=== PATIENT | male | born 1960 | race Caucasian/White ===

== ENCOUNTER 2021-07-15 15:17 | Inpatient (IN) | payer SELFPAY ==
[2021-07-15 16:05] LABS: Absolute Lymphocytes (CBC) 1.6 K/uL (0.7-4.9); Hematocrit 36.1 % (39.6-49.0); Lymphocytes % 13.2 % (15.3-44.8); MPV 9.8 fL (7.6-11.3)
[2021-07-15 16:08] LABS: Protime INR 0.96
[2021-07-15 16:19] LABS: C-Reactive Protein 44.5 mg/L (<3.00); Potassium 3.6 mmol/L (3.5-5.1)
[2021-07-15] MEDS ORDERED: VANCOMYCIN 1 GM/VIAL ONE (16:27)
[2021-07-15] MEDS ORDERED: NA CHLORIDE 0.9% 250 ML ONE (16:27)
[2021-07-15] MEDS ORDERED: NA CHLORIDE 0.9% 100 ML IV ONE (16:27)
[2021-07-15] MEDS ORDERED: PIPERACIL/TAZO 3.375 GM VIAL IV ONE (16:28)
--- NOTE | 2021-07-15 16:56 | ER ---
Nurse's Notes [facility] Name: Dat Saavedra Age: 61 yrs Sex: Male : 1960 Arrival Date: 07/15/2021 Time: 15:19 Bed 5 Private MD: Diagnosis: Cellulitis of right toe;Gangrene, not elsewhere classified;Osteomyelitis, unspecified Presentation: 07/15 15:32 Chief complaint: Patient states: Believes that second toe of R foot is infected, ph states, " I think it started as a blister and went from there." Hx of IDDM, denies fever or chills. Coronavirus screen: Vaccine status: Patient reports receiving the 2nd dose of the covid vaccine. Ebola Screen: No symptoms or risks identified at this time. Initial Sepsis Screen: Does the patient meet any 2 criteria? No. Patient's initial sepsis screen is negative. Does the patient have a suspected source of infection? Yes: Skin breakdown/wound. Risk Assessment: Do you want to hurt yourself or someone else? Patient reports no desire to harm self or others. Onset of symptoms was July 15, 2021. 15:32 Method Of Arrival: Ambulatory 15:32 Acuity: RAZIA 3 ph Historical: - Allergies: 15:34 No Known Allergies; ph - PMHx: 15:34 Diabetes mellitus; Kidney disease; Hypertensive disorder; ph - Immunization history:: Adult Immunizations unknown. - Social history:: Smoking status: Patient reports the use of cigarette tobacco products, smokes one pack cigarettes per day. - Family history:: not pertinent. - Hospitalizations: : No recent hospitalization is reported. Screenin:45 Abuse screen: Denies threats or abuse. Denies injuries from another. Nutritional ww screening: No deficits noted. Tuberculosis screening: No symptoms or risk factors identified. Fall Risk None identified. Assessment: 15:45 General: Appears in no apparent distress. comfortable, Behavior is calm, cooperative. ww Pain: Complains of pain in plantar aspect of right second toe, right second toe and Right second toenail. Neuro: Level of Consciousness is awake, alert, obeys commands, Oriented to person, place, time, situation, Moves all extremities. Speech is normal. Cardiovascular: Patient's skin is warm and dry. Chest pain is denied. Respiratory: Airway is patent Respiratory effort is even, unlabored, Respiratory pattern is regular, symmetrical. GI: No signs and/or symptoms were reported involving the gastrointestinal system. : No signs and/or symptoms were reported regarding the genitourinary system. Derm: Wound noted plantar aspect of right second toe, right second toe and Right second toenail Wound is swollen 2nd digit, weeping, with foul odor. 16:35 Reassessment: Patient appears in no apparent distress at this time. No changes from previously documented assessment. Patient and/or family updated on plan of care and expected duration. Pain level reassessed. Patient is alert, oriented x 3, equal unlabored respirations, skin warm/dry/pink. 18:37 Reassessment: Patient appears in no apparent distress at this time. No changes from previously documented assessment. Patient and/or family updated on plan of care and expected duration. Pain level reassessed. Patient is alert, oriented x 3, equal unlabored respirations, skin warm/dry/pink. Vital Signs: 15:32 BP 123 / 73; Pulse 69; Resp 18; Temp 98.9; Pulse Ox 98% on R/A; Weight 95.25 kg; Height ph 6 ft. 1 in. (185.42 cm); 17:45 Pulse 67; Resp 18; Temp 97.8; Pulse Ox 98% on R/A; ww 18:38 BP 104 / 56; Pulse 61; Resp 18; Pulse Ox 94% ; ww 15:32 Body Mass Index 27.71 (95.25 kg, 185.42 cm) ph ED Course: 15:19 Patient arrived in ED. am2 15:34 Triage completed. ph 15:35 Arm band placed on. ph 15:38 Alverto Mcgill MD is Attending Physician. rn 15:45 First set of blood cultures drawn by ED staff. vg1 15:45 Inserted saline lock: 20 gauge in right antecubital area, using aseptic technique. ww Blood collected. 15:55 Caterina Stroud, RN is Primary Nurse. ww 16:00 Second set of blood cultures drawn by or. vg1 16:14 SARS-COV-2 RT PCR (Document "Date of Onset" if Symptomatic) Sent. dh3 16:14 Wound Culture Sent. dh3 16:26 Patient has correct armband on for positive identification. Bed in low position. Call mh5 light in reach. Side rails up X 1. Warm blanket given. monitor car operator on. Pulse ox on. NIBP on. 16:27 EKG done, by ED staff, reviewed by Alverto Mcgill MD. 5 16:33 XRAY Foot RIGHT 3 View In Process Unspecified. EDMS 16:55 Eliot Gilliland is Hospitalizing Provider. rn 17:43 Lower Extremity Artery Uni Ltd US In Process Unspecified. EDMS 19:30 Attempted to call report. Nurse is still taking report for the day shift. Per protocol st1 I will call back in 10 minutes. 19:47 No provider procedures requiring assistance completed. Patient admitted, IV remains in st1 place. Administered Medications: 16:29 Drug: Zosyn (piperacillin-tazobactam) 3.375 grams Route: IVPB; Infused Over: 60 mins; ww Site: right antecubital; 17:41 Follow up: IV Status: Completed infusion; IV Intake: 100ml vg1 17:42 Drug: vancoMYCIN 1 grams Route: IVPB; Infused Over: 2 hrs; Site: right antecubital; vg1 Intake: 17:41 IV: 100ml; Total: 100ml. vg1 Outcome: 16:55 Decision to Hospitalize by Provider. rn 19:47 Admitted to Med/surg accompanied by tech, room 228, with chart, Report called to st1 SESAR Bynum 19:47 Condition: stable 19:47 Instructed on the need for admit, Demonstrated understanding of instructions. 19:58 Patient left the ED. [facility] Signatures: Dispatcher [employer] EDMS Alverto Mcgill MD MD rn Hall, Patricia, RN RN ph Martinez, Maria [facility] Claudia Pandey Leanne Silverio [facility] Patti Holguin RN RN [facility] Jaylin Hendricks RN RN 5 Caterina Stroud RN RN ww Lisa Vasquez RN RN [facility] Corrections: (The following items were deleted from the chart) 18:41 18:38 Pulse 61bpm; Resp 18bpm; Pulse Ox 94%; ww ww
--- NOTE | 2021-07-15 16:56 | EDPHYS ---
Physician Documentation [facility] Name: Dat Saavedra Age: 61 yrs Sex: Male : 1960 Arrival Date: 07/15/2021 Time: 15:19 Bed 5 Private MD: ED Physician Alverto Mcgill HPI: 07/15 16:03 This 61 yrs old Male presents to ER via Ambulatory with complaints of Foot Pain - rn infection. 16:03 The patient presents with cellulitis of the right foot. Description: draining, rn erythematous, hot, swollen. Onset: The symptoms/episode began/occurred 2 week(s) ago. Possible cause(s): unknown. Associated signs and symptoms: Pertinent positives: drainage, erythema, swelling. Modifying factors: the symptoms are alleviated by nothing, the symptoms are aggravated by squeezing the lesion and expressing the contents, touching. Severity of symptoms: At their worst the symptoms were moderate, in the emergency department the symptoms are unchanged. The patient has not experienced similar symptoms in the past. The patient has not recently seen a physician. Pt reports noticed blister on right 2nd toe 2 weeks ago, no direct trauma noted, progressed to swelling, drainage, redness, and foul smell this past week. No fever. No chills. . Historical: - Allergies: 15:34 No Known Allergies; ph - PMHx: 15:34 Diabetes mellitus; Kidney disease; Hypertensive disorder; ph - Immunization history:: Adult Immunizations unknown. - Social history:: Smoking status: Patient reports the use of cigarette tobacco products, smokes one pack cigarettes per day. - Family history:: not pertinent. - Hospitalizations: : No recent hospitalization is reported. ROS: 16:03 Constitutional: Negative for fever, chills, and weight loss, Eyes: Negative for injury, rn pain, redness, and discharge, Neck: Negative for injury, pain, and swelling, Cardiovascular: Negative for chest pain, palpitations, and edema, Respiratory: Negative for shortness of breath, cough, wheezing, and pleuritic chest pain, Abdomen/GI: Negative for abdominal pain, nausea, vomiting, diarrhea, and constipation, Back: Negative for injury and pain, MS/Extremity: + pain and swelling to right 2nd toe with drainage Skin: + redness to right foot and 2nd toe with drainage Neuro: Negative for headache, weakness, numbness, tingling, and seizure. Exam: 16:03 Constitutional: This is a well developed, well nourished patient who is awake, alert, rn and in no acute distress. Head/Face: Normocephalic, atraumatic. Cardiovascular: Regular rate and rhythm. No pulse deficits. Respiratory: No increased work of breathing, no retractions or nasal flaring. Abdomen/GI: soft, non-tender Skin: Warm, + erythema and drainage with foul smell of right 2nd toe circumferentially with some extension to dorsum of right foot, no streaking. MS/ Extremity: Diminished pulses but present and equal. Neuro: Awake and alert, GCS 15 Vital Signs: 15:32 BP 123 / 73; Pulse 69; Resp 18; Temp 98.9; Pulse Ox 98% on R/A; Weight 95.25 kg; Height ph 6 ft. 1 in. (185.42 cm); 17:45 Pulse 67; Resp 18; Temp 97.8; Pulse Ox 98% on R/A; ww 18:38 BP 104 / 56; Pulse 61; Resp 18; Pulse Ox 94% ; ww 15:32 Body Mass Index 27.71 (95.25 kg, 185.42 cm) ph MDM: 15:38 Patient medically screened. rn 16:54 Differential diagnosis: cellulitis, gangrene, cellulitis. Data reviewed: vital signs, rn nurses notes, lab test result(s), radiologic studies, and as a result, I will admit patient. Counseling: I had a detailed discussion with the patient and/or guardian regarding: the historical points, exam findings, and any diagnostic results supporting the discharge/admit diagnosis, lab results, the need for further work-up and treatment in the hospital. ED course: Admitted to Dr. Gilliland for cellulitis/wet gangrene/diabetic wound infection.. 07/15 15:52 Order name: Blood Culture Adult (2) rn 07/15 15:52 Order name: CBC with Diff; Complete Time: 16:52 rn 07/15 15:52 Order name: Lactate; Complete Time: 16:52 rn 07/15 15:52 Order name: Protime (+inr); Complete Time: 16:52 rn 07/15 15:52 Order name: Ptt, Activated; Complete Time: 16:52 rn 07/15 15:54 Order name: BMP; Complete Time: 16:52 rn 07/15 15:52 Order name: XRAY Foot RIGHT 3 View; Complete Time: 18:17 rn 07/15 15:54 Order name: Wound Culture rn 07/15 15:54 Order name: Sed Rate; Complete Time: 16:52 rn 07/15 15:54 Order name: CRP; Complete Time: 16:52 rn 07/15 16:02 Order name: SARS-COV-2 RT PCR (Document "Date of Onset" if Symptomatic); Complete Time: rn 18:07/15 16:08 Order name: Lower Extremity Artery [employer] US; Complete Time: 18:17 rn 07/15 15:52 Order name: Accucheck; Complete Time: 16:22 rn 07/15 15:52 Order name: Cardiac monitoring; Complete Time: 16:02 rn 07/15 15:52 Order name: EKG - Nurse/Tech; Complete Time: 16:22 rn 07/15 15:52 Order name: IV Saline Lock - Large Bore; Complete Time: 16:02 rn 07/15 15:52 Order name: Labs collected and sent; Complete Time: 16:03 rn 07/15 15:52 Order name: O2 Per Protocol; Complete Time: 16:03 rn 07/15 15:52 Order name: O2 Sat Monitoring; Complete Time: 16:03 rn Administered Medications: 16:29 Drug: Zosyn (piperacillin-tazobactam) 3.375 grams Route: IVPB; Infused Over: 60 mins; ww Site: right antecubital; 17:41 Follow up: IV Status: Completed infusion; IV Intake: 100ml vg1 17:42 Drug: vancoMYCIN 1 grams Route: IVPB; Infused Over: 2 hrs; Site: right antecubital; vg1 Disposition Summary: 07/15/21 16:55 Hospitalization Ordered Hospitalization Status: Inpatient Admission rn Provider: Eliot Gilliland rn Location: Telemetry/MedSurg (Inpatient) rn Condition: Stable rn Problem: new rn Symptoms: have improved rn Bed/Room Type: Standard rn Room Assignment: 228(07/15/21 18:40) eb Diagnosis - Cellulitis of right toe rn - Gangrene, not elsewhere classified rn - Osteomyelitis, unspecified rn Forms: - Medication Reconciliation Form rn - SBAR form rn Signatures: Dispatcher [employer] Alverto Munoz MD MD rn Seaman, Jennifer, RN RN Kimberley Quiles Victoria RN RN vg1 Caterina Stroud RN RN ww Corrections: (The following items were deleted from the chart) 18:40 16:55 rosita aguilar
--- NOTE | 2021-07-15 17:39 | P.HP ---
Certification for Inpatient Patient admitted to: Inpatient With expected LOS: >2 Midnights Practitioner: I am a practitioner with admitting privileges, knowledge of patient current condition, hospital course, and medical plan of care. Services: Services provided to patient in accordance with Admission requirements found in Title 42 Section 412.3 of the Code of Federal Regulations Patient History Date of Service: 07/15/21 Reason for admission: Right foot ulcer History of Present Illness: 61-year-old gentleman with a history of diabetes mellitus on insulin therapy, history of gout with gouty tophi, congestive heart failure, chronic kidney disease stage IV, history of nephrectomy secondary to renal cancer and hypertension presented to the emergency department with a complaint of rapidly progressive worsening ulcer on the right second toe of 1 week duration. Patient stated he has a wound on the left second toe which rapidly became progressive with increasing swelling and redness. He states that the wound also became malodorous. He denies any history of peripheral vascular disease. He reports prior cardiac catheterization which was normal but has a history of congestive heart failure. No gas identified on the foot x-ray in the ED. he has mild leukocytosis but does not meet criteria for sepsis. No recent antibiotics. Patient is admitted for further management. - Past Medical/Surgical History -: DM type II -: Chronic kidney disease stage IV -: History of renal cell cancer -: Hypertension -: Gout -: Tophi -: Nephrectomy -: Cardiac catheterization -: Appendectomy - Family History Mother -: Diabetes, Cancer - Social History Smoking Status: Current every day smoker Alcohol use: No CD- Drugs: No Place of Residence: Home Review of Systems Other: Patient denied any fever or chills, no nausea or vomiting, no abdominal pain. Except as documented, all other systems reviewed and negative. Physical Examination - Physical Exam General: Alert, In no apparent distress, Oriented x3 HEENT: PERRLA, Mucous membr. moist/pink, Sclerae nonicteric Neck: Supple, JVD not distended Respiratory: Clear to auscultation bilaterally, Normal air movement Cardiovascular: Regular rate/rhythm, Normal S1 S2, No murmurs, Edema (Bilateral legs worse on the right) Gastrointestinal: Normal bowel sounds, Soft and benign, Non-distended, No tenderness Musculoskeletal: Swelling (Right second toe) Integumentary: Erythema, Cyanosis, Other (Multiple small ulcers on the right second toe) Neurological: Normal strength at 5/5 x4 extr, Cranial nerves 3-12 intact Lymphatics: No axilla or inguinal lymphadenopathy - Studies Laboratory Data (last 24 hrs) 07/15/21 15:45: Sodium 133 L, Potassium 3.6, BUN 86 H, Creatinine 3.58 H, Glucose 119 H 07/15/21 15:45: PT 10.5, INR 0.96, APTT 44.2 H 07/15/21 15:45: WBC 11.8 H, Hgb 11.9 L, Hct 36.1 L, Plt Count 267 Assessment and Plan - Problems (Diagnosis) (1) Type 2 diabetes mellitus with foot ulcer and gangrene Current Visit: Yes Status: Acute (2) Hypertension Current Visit: Yes Status: Acute (3) Chronic kidney disease, stage IV (severe) Current Visit: Yes Status: Acute (4) Chronic diastolic heart failure Current Visit: Yes Status: Acute - Plan Admit the patient to the medical floor. Broad-spectrum antibiotic coverage with IV cefepime and vancomycin. Pharmacy consult to renally dose antibiotics. Pain management as needed. Obtain arterial Doppler to assess for peripheral vascular disease. Consult to general surgery. Local wound care. Obtain blood cultures. Deep tissue wound culture if patient will undergo debridement. Continue allopurinol for chronic gout. Insulin sliding scale and Lantus insulin for glucose management. Continue home antihypertensives. Monitor renal function. - Advance Directives Does patient have a Living Will: No Does patient have a Durable POA for Healthcare: No
[2021-07-15] MEDS: carvediloL 25 MG TAB PO SCH (18:00)
--- NOTE | 2021-07-15 18:11 | RAD REPORT ---
EXAM DESCRIPTION: US - Lower Extremity Artery [employer] Ltd - 07/15/2021 5:41 pm CLINICAL HISTORY: weak DP pulse, gangrene COMPARISON: No comparisons TECHNIQUE: Doppler evaluation of the right lower extremity arterial tree performed. Waveforms and ve locity values were obtained along with visual inspection. FINDINGS: Monophasic waveform pattern was seen throughout the right lower extremity likely indicatin g significant flow restricting atherosclerotic change in the iliac vasculature.Atherosclerotic change s are present along the brennan of the arterial tree. Blood flow is demonstrated in the common femoral, superficial femoral, popliteal, posterior tibial and dorsalis pedis arteries. No occlusion or focal area of flow restricting vascular lesions seen. Velocities are dampened along the entire course of th e right lower extremity. IMPRESSION: Waveforms could be obtained along the main arteries of the right lower extremity from gr oin to ankle. However, waveforms were dampened and monophasic usually indicating significant flow res tricting disease in the aorta and/or iliac vasculature. No occluded vessel or focal flow restricting lesions seen.
--- NOTE | 2021-07-15 18:16 | RAD REPORT ---
EXAM DESCRIPTION: RAD - Foot Right 3 View - 07/15/2021 4:32 pm CLINICAL HISTORY: infection 2nd toe with gangrene;Pain COMPARISON: No comparisons FINDINGS: Fracture deformity is seen involving the head of the second proximal phalanx. Fracture fra gment comprising most of the second proximal phalanx head has been displaced laterally. Given the his tory of second toe infection and gangrene, this is probably pathologic fracture from osteomyelitis. T he medial margin of the second middle phalanx shows bone loss. The remaining phalanges show degenerative changes at the IP joints and at the first MTP joint. These are relatively mild with no erosive or destructive component. Advanced degenerative changes are present in the midfoot with joint space narrowing and spurring mcmillan ges at the talonavicular joint and the navicular articulation with the and cuneiform bones. Subcortic al degenerative cystic changes are present. There are moderately severe degenerative changes at the t arsal - metatarsal articulations. Midfoot changes appear to be developing Charcot joint. No air or foreign body in the soft tissues. IMPRESSION: Osteomyelitis changes are evident in the second toe involving the middle phalanx with pina ne loss in fracture changes of the second proximal phalanx head. Very advanced degenerative changes in the midfoot likely a developing Charcot joint.
[2021-07-15] MEDS ORDERED: ACETAMINOPHEN 500 MG TAB PO PRN (19:57)
[2021-07-15] MEDS ORDERED: ONDANSETRON 4 MG/2 ML VIAL IV PRN (19:57)
[2021-07-15] MEDS ORDERED: VANCOMYCIN 1 GM in NA CHLORIDE 0.9% 250 ML IVPB SCH (19:57)
[2021-07-15] MEDS: INSULIN -REGULAR HUMAN 50 UNIT/0.5 ML ML SQ SCH (21:00)
[2021-07-15] MEDS ORDERED: VANCOMYCIN 750 MG in NA CHLORIDE 0.9% 150 ML IVPB ONE (21:00)
[2021-07-15] MEDS ORDERED: VANCOMYCIN 1 GM in NA CHLORIDE 0.9% 250 ML IVPB ONE (22:00)
[2021-07-15] MEDS: HYDRALAZINE HCL 25 MG TABLET PO SCH (23:16)
[2021-07-16] MEDS: HEPARIN 5000 UNIT/ML 1 ML VIAL SQ SCH ×3 (00:44→16:41)
[2021-07-16] MEDS: CEFEPIME 1 GM in NA CHLORIDE 0.9% 100 ML IV SCH ×2 (00:44→22:03)
[2021-07-16 06:38] LABS: Absolute Lymphocytes (CBC) 1.5 K/uL (0.7-4.9); Hematocrit 34.2 % (39.6-49.0); Lymphocytes % 16.9 % (15.3-44.8); MPV 9.7 fL (7.6-11.3); RBC Red Blood Cell Count 3.66 M/uL (4.33-5.43)
[2021-07-16 06:45] LABS: Magnesium 2.7 mg/dL (1.8-2.4); Phosphorus 3.8 mg/dL (2.5-4.9); Potassium 3.4 mmol/L (3.5-5.1)
[2021-07-16] MEDS: INSULIN -REGULAR HUMAN 50 UNIT/0.5 ML ML SQ SCH ×4 (07:30→22:04)
[2021-07-16] MEDS ORDERED: POTASSIUM CL SA 10 MEQ TAB PO ONE (07:49)
[2021-07-16 08:31] LABS: Urine Appearance CLEAR (Clear); Urine Bilirubin NEGATIVE (Negative); Urine Blood NEGATIVE (Negative); Urine Color YELLOW (Yellow); Urine Glucose NEGATIVE (Negative); Urine Specific Gravity 1.015 (1.005-1.030)
[2021-07-16 08:32] LABS: Urine Microscopic Reflex NO UMIC; Urine Protein NEGATIVE (Negative); Urine Urobilinogen 0.2 mg/dL (0.2-1.0)
[2021-07-16] MEDS ORDERED: DOXAZOSIN 2 MG TAB ONE (08:42)
[2021-07-16] MEDS: DOXAZOSIN 4 MG TAB PO SCH (09:00)
[2021-07-16] MEDS: INSULIN GLARGINE 100 UNIT/ML SQ SCH (09:10)
[2021-07-16] MEDS: allopurinoL 100 MG TAB PO SCH (09:10)
[2021-07-16] MEDS: HYDRALAZINE HCL 25 MG TABLET PO SCH ×3 (09:11→22:02)
[2021-07-16] MEDS: carvediloL 25 MG TAB PO SCH ×2 (09:12→17:01)
[2021-07-16] MEDS: FUROSEMIDE 40 MG TABLET PO SCH (09:12)
[2021-07-16] MEDS: AMLODIPINE 10 MG TAB PO SCH (09:12)
[2021-07-16] MEDS: METOLAZONE 2.5 MG TABLET PO SCH (09:13)
[2021-07-16] MEDS: MORPHINE 2 MG/ML SYR IV PRN (13:01)
--- NOTE | 2021-07-16 13:52 | P.PN ---
Subjective Date of Service: 07/16/21 Chief Complaint: Right foot ulcer Patient reporting pain and bleeding from the right second toe. No fever. 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 HEENT: Mucous membr. moist/pink, Sclerae nonicteric Neck: JVD not distended Respiratory: Clear to auscultation bilaterally, Normal air movement Cardiovascular: Regular rate/rhythm, Normal S1 S2, No murmurs, edema of lower extremities improved. Gastrointestinal: Normal bowel sounds, Soft and benign, Non-distended, No tenderness Musculoskeletal: Swelling (Right second toe) Integumentary: Erythema, Cyanosis and ulcer on the dorsum of the right second toe. Neurological: Normal strength at 5/5 x4 extr. Plan: Continue IV cefepime and vancomycin. Pharmacy consult to renally dose antibiotics. Pain management as needed. Arterial Doppler of right lower extremities result reviewed. Possible flow- limiting stenosis, no complete occlusion Dr. Khan-Surgery consulted Local wound care. Follow cultures Deep tissue wound culture if patient will undergo debridement. Continue allopurinol for chronic gout. Insulin sliding scale and Lantus insulin for glucose management. Continue home antihypertensives. Monitor renal function.
[2021-07-16 17:55] VITALS: BMI 27.6
[2021-07-16] MEDS: ATORVASTATIN 80 MG TAB PO SCH (22:02)
[2021-07-16] MEDS: TRAMADOL HCL 50 MG TAB PO SCH (22:02)
[2021-07-17] MEDS: HEPARIN 5000 UNIT/ML 1 ML VIAL SQ SCH ×3 (00:39→16:28)
[2021-07-17] MEDS: carvediloL 25 MG TAB PO SCH ×2 (06:28→17:10)
[2021-07-17 06:35] LABS: Absolute Lymphocytes (CBC) 1.9 K/uL (0.7-4.9); Hematocrit 34.8 % (39.6-49.0); Lymphocytes % 19.5 % (15.3-44.8); MPV 9.7 fL (7.6-11.3); RBC Red Blood Cell Count 3.74 M/uL (4.33-5.43)
[2021-07-17 06:43] LABS: Potassium 3.4 mmol/L (3.5-5.1)
[2021-07-17] MEDS: DOXAZOSIN 4 MG TAB PO SCH (08:15)
[2021-07-17] MEDS: TRAMADOL HCL 50 MG TAB PO SCH ×2 (08:16→21:19)
[2021-07-17] MEDS: SPIRONOLACTONE 25 MG TABLET PO SCH (08:17)
[2021-07-17] MEDS: allopurinoL 100 MG TAB PO SCH (08:18)
[2021-07-17] MEDS: FUROSEMIDE 40 MG TABLET PO SCH (08:18)
[2021-07-17] MEDS: HYDRALAZINE HCL 25 MG TABLET PO SCH ×3 (08:19→21:19)
[2021-07-17] MEDS: METOLAZONE 2.5 MG TABLET PO SCH (08:20)
[2021-07-17] MEDS: AMLODIPINE 10 MG TAB PO SCH (08:20)
[2021-07-17] MEDS: INSULIN GLARGINE 100 UNIT/ML SQ SCH (08:21)
[2021-07-17] MEDS: INSULIN -REGULAR HUMAN 50 UNIT/0.5 ML ML SQ SCH ×4 (08:21→21:17)
[2021-07-17] MEDS ORDERED: AMLODIPINE 10 MG TAB PO SCH (09:00)
[2021-07-17] MEDS ORDERED: POTASSIUM CL SA 10 MEQ TAB PO ONE (09:00)
[2021-07-17] MEDS: VANCOMYCIN 1.75 GM in NA CHLORIDE 0.9% 500 ML IVPB SCH (12:17)
--- NOTE | 2021-07-17 12:49 | P.PN ---
Subjective Date of Service: 07/17/21 Chief Complaint: Right foot ulcer Patient has no new complaint. No fever. 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 Neck: JVD not distended Respiratory: Clear to auscultation bilaterally, Normal air movement Cardiovascular: Regular rate/rhythm, Normal S1 S2, No murmurs, edema of lower extremities improved. Gastrointestinal: Normal bowel sounds, Soft and benign, Non-distended, No tenderness Musculoskeletal: Swelling (Right second toe) Integumentary: Erythema, Cyanosis and ulcers on the dorsum of the right second toe. Neurological: No focal motor deficit Plan: Continue IV cefepime and vancomycin. Pharmacy consult to renally dose antibiotics. Pain management as needed. Arterial Doppler of right lower extremities result reviewed. Possible flow- limiting stenosis, no complete occlusion. X-ray suggest bone involvement, and Charcot foot Seen by Dr. Khan-Surgery recommend to continue antibiotics for now and monitor response. He may need amputation. Patient will require 6 weeks of IV antibiotics if no amputation. Local wound care. Follow cultures Deep tissue wound culture if patient will undergo debridement. Continue allopurinol for chronic gout. Insulin sliding scale and Lantus insulin for glucose management. Continue home antihypertensives.
[2021-07-17] MEDS: MORPHINE 2 MG/ML SYR IV PRN (16:28)
[2021-07-17] MEDS: ATORVASTATIN 80 MG TAB PO SCH (21:19)
--- NOTE | 2021-07-17 22:15 | P.CNS ---
Date of Consult: 07/16/21 Chief Complaint: Right foot ulcer History of Present Illness: 61 y/o male with foul smelling and ulcers over right 2nd and 3rd toe after using shoes that he believe were too tight. Allergies No Known Allergies Allergy (Unverified 07/15/21 18:10) Home Medications: Allopurinol 200 mg PO BID 07/16/21 Amlodipine [Norvasc*] 10 mg PO DAILY 07/16/21 Atorvastatin Calcium [Lipitor] 80 mg PO BEDTIME 07/16/21 Carvedilol [Coreg] 25 mg PO BID 07/16/21 Clonidine HCl [Catapres*] 0.2 mg PO TID 07/16/21 Codeine/APAP [Tylenol W/Codeine #3 tab] 60 tab PO Q8HR PRN 07/16/21 Doxazosin [Cardura] 8 mg PO DAILY 07/16/21 Furosemide [Lasix] 80 mg PO BID 07/16/21 Hydralazine HCl 100 mg PO TID 07/16/21 Insulin NPH Human [Novolin N (Humulin N)*] 20 units SQ BID 07/16/21 Spironolactone [Aldactone] 25 mg PO DAILY 07/16/21 metOLazone [Zaroxolyn] 2.5 mg PO 07/16/21 traMADol HCL [Ultram] 100 mg PO BID 07/16/21 - Past Medical/Surgical History Diabetic: Yes -: DM type II -: Chronic kidney disease stage IV -: History of renal cell cancer -: Hypertension -: Gout -: Tophi -: Nephrectomy -: Cardiac catheterization -: Appendectomy - Family History Mother Medical History: Diabetes, Cancer - Social History Smoking Status: Current every day smoker Alcohol use: No CD- Drugs: No Caffeine use: Yes Place of Residence: Home Review of Systems General: As per HPI Integumentary: As per HPI Physical Examination Temp Pulse Resp BP Pulse Ox 97.6 F 79 18 128/67 95 07/17/21 20:00 07/17/21 20:00 07/17/21 21:19 07/17/21 20:00 07/17/21 21:19 General: Alert, In no apparent distress, Oriented x3, Cooperative HEENT: PERRLA Neck: Supple Respiratory: Normal air movement Cardiovascular: Abnormal pulses Gastrointestinal: No rebound Integumentary: Diabetic ulcer (2nd and 3rd toes. Cellulitis, necrotic tissue) Conclusions/Impression: Diabetic 2nd and third toes ulcer with cellulitis and osteomyelitis. PT explain options of debridement vs amputation with BAR. Diabetes contrrol diabetic shoes PVD explanation done
[2021-07-17] MEDS: CEFEPIME 1 GM in NA CHLORIDE 0.9% 100 ML IV SCH (23:29)
--- NOTE | 2021-07-18 03:13 | PN ---
Objective: Vital Signs: Temperature is 97.6 with respirations 18, blood pressure 120/67. General: The patient is awake and alert, in no distress. Chest: Clear. Abdomen: Soft and depressible. Extremities: Right foot cellulitis with open ulcers in the second and third toes and necrotic tissue present. Imaging Data: X-ray shows osteomyelitis of the same area. Laboratory Data: The blood work shows a WBC count of 9.9 with platelets of 241 and chloride of 101 w ith a glucose of 192. Assessment: Osteomyelitis and diabetic ulcers with infection, right second and third toe. Plan: I explained to him the different options. He chose amputation of the second toe, but he is no t mentally ready for that as per the patient. At least, he has to let me clean these wounds, at leas t the second and third areas should be cleaned, that will help this delineate make a brandt r decision in the next few days. He feels comfortable with that decision, so we are going to keep hi m n.p.o. after midnight. I am bringing him for the debridement of the diabetic ulcers on the right f oot with benefits, alternatives, risks including, but not limited to infection, bleeding, damage to a djacent structures, anesthesia complication, nonhealing wound, CT, and even . He also understan ds this may not relieve any symptoms. He might need more than one surgical intervention. He will re quire wound care. It is imperative that he understands the concept of diabetes and how diet and offl oading will help on that. He also was advised in the future to do a full workup with the [facility] to understand the supply of that region and that might help in also make decisions in the future in case amputation is needed. HM/MODL Voice ID: [id number] Report ID: [id number]
[2021-07-18] MEDS: HEPARIN 5000 UNIT/ML 1 ML VIAL SQ SCH ×3 (03:35→17:15)
[2021-07-18 04:32] LABS: Albumin 2.9 g/dL (3.4-5.0); Phosphorus 2.8 mg/dL (2.5-4.9); Potassium 3.8 mmol/L (3.5-5.1)
[2021-07-18] MEDS: carvediloL 25 MG TAB PO SCH ×2 (06:03→17:14)
[2021-07-18] MEDS: INSULIN -REGULAR HUMAN 50 UNIT/0.5 ML ML SQ SCH ×3 (09:04→16:23)
[2021-07-18] MEDS: HYDRALAZINE HCL 25 MG TABLET PO SCH ×3 (09:05→20:53)
[2021-07-18] MEDS: allopurinoL 100 MG TAB PO SCH (09:05)
[2021-07-18] MEDS: AMLODIPINE 10 MG TAB PO SCH (09:05)
[2021-07-18] MEDS: TRAMADOL HCL 50 MG TAB PO SCH ×2 (09:06→20:54)
[2021-07-18] MEDS: SPIRONOLACTONE 25 MG TABLET PO SCH (09:07)
[2021-07-18] MEDS: DOXAZOSIN 4 MG TAB PO SCH (09:07)
[2021-07-18] MEDS: INSULIN GLARGINE 100 UNIT/ML SQ SCH (09:08)
[2021-07-18] MEDS: FUROSEMIDE 40 MG TABLET PO SCH (09:08)
[2021-07-18] MEDS: METOLAZONE 2.5 MG TABLET PO SCH (09:09)
[2021-07-18] MEDS ORDERED: NA CHLORIDE 0.9% 1,000 ML ONE (09:21)
[2021-07-18] MEDS ORDERED: dexAMETHasone 4 MG/ML VIAL ONE (10:21)
[2021-07-18] MEDS ORDERED: propofoL 200 MG/20 ML VIAL IV ONE (10:21)
[2021-07-18] MEDS ORDERED: MIDAZOLAM HCL 2 MG/2 ML INJ ONE (10:21)
[2021-07-18] MEDS ORDERED: LIDOCAINE 1% MPF 5 ML VIAL ONE (10:21)
[2021-07-18] MEDS ORDERED: FENTANYL CITR 100 MCG/2 ML ONE (10:21)
[2021-07-18] MEDS ORDERED: ONDANSETRON 4 MG/2 ML VIAL ONE (10:22)
--- NOTE | 2021-07-18 10:59 | P.BOP ---
Preoperative diagnosis: R foot cellulitis, necrotic infected diabetic ulcer R 2 & 3rd toe, osteomye Postoperative diagnosis: same Primary procedure: Excisional debridement necrotic infected diabetic ulcer R 2 & 3rd toe 4x4cm Secondary procedure: with 2nd toe bone bx Estimated blood loss: <10cc Specimen: culture and 2nd toe bone fragment Findings: see dicta Anesthesia: General Complications: None Transferred to: Recovery Room Condition: Good
[2021-07-18] MEDS: HYDROMORPHONE HCL 1 MG/ML INJ ONE ×2 (11:18→11:27)
--- NOTE | 2021-07-18 14:13 | OP ---
Date of Procedure: 07/18/2021 Surgeon: Tevin Khan MD Preoperative Diagnoses: Right foot cellulitis, necrotic and infected diabetic ulcer on the right tammy e second and third toe with destructive osteomyelitis. Postoperative Diagnoses: Right foot cellulitis, necrotic and infected diabetic ulcer on the right si de second and third toe with destructive osteomyelitis. Procedure: Excisional debridement of necrotic infected diabetic ulcer, right second and third toe ab out 4 x 4 cm with a second toe bone biopsy. Specimen: Culture and second toe bone fragment. Findings: The patient has cellulitis and a diabetic ulcer on the distal foot and also mainly second and third toe. Toe after debridement that area shows a destructive osteomyelitis with piece of bone obtained and sent to biopsy too. This toe may need to be amputated. We will discuss with him and tr y to explain to him the need for it again and see if we can get a consent. Complications: None. Estimated Blood Loss: Less than 10 cc. Indication: This is the case of a 61-year-old patient, who comes to us with history of diabetes, als o diabetic foot ulcers with osteomyelitis, also some necrotic changes on the right second and third t oe. We explained to him the options of debridement and IV antibiotics versus amputation. He wants t o try the first one first, although I explained to him once we cleaned this area and we have a better picture of the area, he might have to change his plan and just go for the second toe amputation. I believe we might be able to save #3. We only have consent today for a debridement, not for amputatio ns, so we will proceed accordingly since the patient needs to have this necrotic tissue removed. The benefits, alternatives, and risks were fully explained, which include, but not limited to infection, bleeding, damage to adjacent structures, anesthesia complication, nonhealing wound, [place] and even deat h. He also understands this may not relieve any symptoms. He might need more than one surgical inte rvention. He understood, signed a consent. Procedure In Detail: The patient was brought to the operating room, placed in supine position. Anes thesia was done without complication. A time-out was called. Right foot was prepped and draped in t he usual sterile fashion. We proceeded to do debridement after local anesthetic was injected of the second and third toe. The third toe we might be able to just removing this necrotic tissue to save i t. The second toe after we removed that, we noticed the patient has some fragments from the distal a nd midphalangeal bones. We sent that fragment for a bone biopsy. We also sent cultures. The bone i s coming to the lateral side of the foot. I believe this patient may have to eventually signed a con sent for amputation of the second toe. Area was irrigated, hemostasis was obtained, and area was pac ked with wet-to-dry dressing. We are going to discuss the patient once again and talk to him in the next 48 hours to advise the importance of wound care and most likely removing the second toe. I am n ot sure exactly if this can be reversed after seeing that destructive osteomyelitis. In the next 48 hours, we also be able to take a look at the third toe. I believe that area may come back. If in 48 hours the 2 toes are not viable, then he have to proceed accordingly. Otherwise, he may have to rem ove the second toe. We will follow the patient with you. ANDRES/LINDSEY Voice ID: [id number] Report ID: [id number]
--- NOTE | 2021-07-18 15:17 | P.PN ---
Subjective Date of Service: 07/18/21 Chief Complaint: Right foot ulcer Patient has no new complaint. Dr. Khan took patient to the OR today for debridement. Patient has an exposed bone after debridement per Dr. Khan. Physical Examination - Vital Signs Temperature: 97.1 F Blood Pressure: 132/74 Pulse: 72 Respirations: 14 Pulse Ox (%): 93 - Studies Microbiology Data (last 24 hrs): 07/15/21 16:10 Wound - Right Foot Gram Stain - Final 07/15/21 16:00 Blood - Blood Blood Culture Gram Stain - Final Assessment And Plan - Current Problems (Diagnosis) (1) Type 2 diabetes mellitus with foot ulcer and gangrene Current Visit: Yes Status: Acute (2) Hypertension Current Visit: Yes Status: Acute (3) Chronic kidney disease, stage IV (severe) Current Visit: Yes Status: Acute (4) Chronic diastolic heart failure Current Visit: Yes Status: Acute (5) Osteomyelitis of toe Current Visit: Yes Status: Acute - Plan Physical Exam General: Alert, In no apparent distress. Neck: JVD not distended Respiratory: Clear to auscultation bilaterally, Normal air movement Cardiovascular: Regular rate/rhythm, Normal S1 S2, No murmurs, edema of lower extremities improved. Gastrointestinal: Normal bowel sounds, Soft and benign, Non-distended, No tenderness Musculoskeletal: Swelling (Right second toe) Integumentary: Erythema, Cyanosis and ulcers on the dorsum of the right second toe. Neurological: No focal motor deficit Plan: Continue IV cefepime and vancomycin. Pain management as needed. Arterial Doppler of right lower extremities result reviewed. Possible flow- limiting stenosis, no complete occlusion. X-ray suggest bone involvement, and Charcot foot Seen by Dr. Khan-Surgery, status post sharp knife debridement today. Dr. Khan recommend amputation for bone involvement. Patient agrees to amputation surgery is scheduled for Sunday. No outpatient IV antibiotics if patient undergo amputation. Local wound care. Follow cultures Follow deep tissue wound culture. Continue allopurinol for chronic gout. Continue insulin sliding scale and Lantus insulin for glucose management. Continue home antihypertensives.
[2021-07-18] MEDS: VANCOMYCIN 1.75 GM in NA CHLORIDE 0.9% 500 ML IVPB SCH (20:53)
[2021-07-18] MEDS: ATORVASTATIN 80 MG TAB PO SCH (20:53)
[2021-07-19] MEDS: CEFEPIME 1 GM in NA CHLORIDE 0.9% 100 ML IV SCH ×2 (00:18→22:19)
[2021-07-19] MEDS: HEPARIN 5000 UNIT/ML 1 ML VIAL SQ SCH ×3 (00:21→16:13)
[2021-07-19] MEDS: INSULIN -REGULAR HUMAN 50 UNIT/0.5 ML ML SQ SCH ×5 (00:28→20:58)
[2021-07-19] MEDS: MORPHINE 2 MG/ML SYR IV PRN ×3 (00:56→23:04)
[2021-07-19 05:41] LABS: Hematocrit 35.3 % (39.6-49.0); MPV 8.9 fL (7.6-11.3); RBC Red Blood Cell Count 3.82 M/uL (4.33-5.43)
[2021-07-19 05:56] LABS: Albumin 2.9 g/dL (3.4-5.0); Potassium 3.8 mmol/L (3.5-5.1)
[2021-07-19] MEDS: carvediloL 25 MG TAB PO SCH ×2 (06:05→17:16)
--- NOTE | 2021-07-19 06:51 | P.PN ---
Date of Service: 07/19/21 Subjective: intermittent pain in R 2nd toe no nausea/vomiting, no diarrhea, no abd pain ROS: 10 point ROS as noted above, otherwise negative Physical exam GEN: Alert, oriented, NAD HEENT: Normal conjunctiva, sclera anicteric CV: Regular rate and rhythm, trace b/l pedal edema Pulm: Nonlabored respirations on room air ABD: Soft, nontender, nondistended Integumentary: R 2nd toe ulceration, dressing c/d/i Neuro: Normal speech, normal affect Problem List R 2nd toe osteomyelitis DM2, insulin dependent Chronic diastolic CHF CKD4 continue IV cefepime / vanc pain meds as needed possible flow-limiting senosis on arterial doppler of RLE, no complete occlusion s/p debridement on 07/18, Surgery planning for amputation tomorrow continue local wound care for now f/u cultures continue sliding scale, titrate insulin for better control continue home anti-hypertensives Dispo: home, likely ~2 days Time Spent Managing Pts Care (In Minutes): 35
[2021-07-19] MEDS: HYDRALAZINE HCL 25 MG TABLET PO SCH ×3 (08:46→20:53)
[2021-07-19] MEDS: FUROSEMIDE 40 MG TABLET PO SCH (08:47)
[2021-07-19] MEDS: allopurinoL 100 MG TAB PO SCH (08:47)
[2021-07-19] MEDS: SPIRONOLACTONE 25 MG TABLET PO SCH (08:47)
[2021-07-19] MEDS: AMLODIPINE 10 MG TAB PO SCH (08:47)
[2021-07-19] MEDS: DOXAZOSIN 4 MG TAB PO SCH (08:48)
[2021-07-19] MEDS: METOLAZONE 2.5 MG TABLET PO SCH (08:48)
[2021-07-19] MEDS: TRAMADOL HCL 50 MG TAB PO SCH ×2 (08:48→20:54)
[2021-07-19] MEDS: INSULIN GLARGINE 100 UNIT/ML SQ SCH (08:49)
--- NOTE | 2021-07-19 12:40 | EKG ---
Test Date: 2021-07-15 Test Time: 16:20:48 Sponge Maker: COOPERW MEASUREMENT RESULTS: Intervals: Rate: 65 ND: 250 QRSD: 102 QT: 484 QTc: 503 [place]: P: 56 ND: 250 QRS: 68 T: 83 INTERPRETIVE STATEMENTS: Sinus rhythm with 1st degree AV block Prolonged QT Abnormal ECG No previous ECG available for comparison Electronically Signed On 07-19-21 12:33:52 CDT by Esteban Loomis
--- NOTE | 2021-07-19 14:21 | P.CNS ---
Date of Consult: 07/19/21 Chief Complaint: Right foot ulcer History of Present Illness: Patient, CHF, CKD stage IV, and history of nephrectomy secondary to renal cancer who presented to the emergency department secondary to worsening infection of his right second and third toe. Patient states that his symptoms have slowly progressed over the past week. States he has never had this type of infection in the past. Associated symptoms include: Pain worse with ambulation, swelling, erythema. He denies systemic symptoms such as fever, chills/rigors, nausea/vomiting/diarrhea. Foot x-ray demonstrated osteomyelitis of the second toe at the middle and proximal phalanx. Arterial Doppler showed flow restric ting disease of the aorta and iliac vasculature. CBC significant for WBC 9.9, hemoglobin 11.6. BMP significant for creatinine of 2.49 and GFR of 26. Of note patient also has elevated inflammatory markers, CRP 44.5 and ESR 62. Blood cultures obtained on 07/15 grew gram-positive cocci in 1 out of 4 bottles, likely contamination. Wound culture obtained on 07/15 grew staph lugdunensis. Patient underwent surgical debridement of ulcers on the second and third toe performed by Dr. Khan on 07/18. Wound culture and bone biopsy are pending. Patient empirically placed on broad-spectrum IV vancomycin and cefepime. Hemoglobin A1c pending. Allergies No Known Allergies Allergy (Unverified 07/15/21 18:10) Home Medications: Allopurinol 200 mg PO BID 07/16/21 Amlodipine [Norvasc*] 10 mg PO DAILY 07/16/21 Atorvastatin Calcium [Lipitor] 80 mg PO BEDTIME 07/16/21 Carvedilol [Coreg] 25 mg PO BID 07/16/21 Clonidine HCl [Catapres*] 0.2 mg PO TID 07/16/21 Codeine/APAP [Tylenol W/Codeine #3 tab] 60 tab PO Q8HR PRN 07/16/21 Doxazosin [Cardura] 8 mg PO DAILY 07/16/21 Furosemide [Lasix] 80 mg PO BID 07/16/21 Hydralazine HCl 100 mg PO TID 07/16/21 Insulin NPH Human [Novolin N (Humulin N)*] 20 units SQ BID 07/16/21 Spironolactone [Aldactone] 25 mg PO DAILY 07/16/21 metOLazone [Zaroxolyn] 2.5 mg PO 07/16/21 traMADol HCL [Ultram] 100 mg PO BID 07/16/21 - Past Medical/Surgical History Diabetic: Yes -: DM type II -: Chronic kidney disease stage IV -: History of renal cell cancer -: Hypertension -: Gout -: Tophi -: Nephrectomy -: Cardiac catheterization -: Appendectomy - Family History Mother Medical History: Diabetes, Cancer - Social History Smoking Status: Current every day smoker Alcohol use: No CD- Drugs: No Caffeine use: Yes Place of Residence: Home Review of Systems 10-point ROS is otherwise unremarkable Physical Examination Temp Pulse Resp BP Pulse Ox 98.0 F 75 18 133/75 98 07/19/21 12:00 07/19/21 12:00 07/19/21 12:00 07/19/21 12:07/19/21 12:00 General: Alert, In no apparent distress HEENT: Atraumatic, Normocephalic Neck: Supple Respiratory: Clear to auscultation bilaterally, Normal air movement Cardiovascular: No edema, Regular rate/rhythm, Normal S1 S2 Musculoskeletal: No clubbing, No swelling Integumentary: Other (Bilateral olecranon growths right greater than left) Conclusions/Impression: Antibiotics: Vancomycin: 07/17current Cefepime: 07/15current Assessment/plan Right second and third diabetic foot ulcer with osteomyelitis of the second toe X-ray demonstrated osteomyelitis of the right second toe middle and proximal phalanx. Patient taken to the OR on 07/18 for debridement of wounds on second/third toe. Surgical team plans to take patient back to the OR later this week for amputation of second toe. -Superficial wound cultures growing staph lugdunensis. Wound culture/bone biopsy obtained during OR debridement are pending. Recommend continuing broad-spectrum IV antibiotic at this time. Will de- escalate after source of infection contained after amputation later this week. Peripheral vascular disease Arterial Doppler showed flow restricting disease at aorta and iliac vasculature. Anemia Continue to monitor H&H Diabetes Hemoglobin A1c pending. Strict glucose monitoring needed for proper infection control/wound healing ESRD stage IV Continue monitor closely. Medical management per primary team Plan of care discussed with Dr. Dunaway Thank you for consultation
[2021-07-19] MEDS: ATORVASTATIN 80 MG TAB PO SCH (20:54)
[2021-07-20] MEDS: HEPARIN 5000 UNIT/ML 1 ML VIAL SQ SCH ×3 (01:00→16:58)
[2021-07-20 04:01] LABS: Albumin 3.1 g/dL (3.4-5.0); Phosphorus 3.1 mg/dL (2.5-4.9); Potassium 4.2 mmol/L (3.5-5.1)
[2021-07-20] MEDS: carvediloL 25 MG TAB PO SCH ×2 (06:18→16:58)
--- NOTE | 2021-07-20 06:52 | P.PN ---
Date of Service: 07/20/21 Subjective: stable, no acute events for amputation today ROS: 10 point ROS as noted above, otherwise negative Physical exam GEN: Alert, oriented, NAD HEENT: Normal conjunctiva, sclera anicteric CV: Regular rate and rhythm, trace b/l pedal edema Pulm: Nonlabored respirations on room air Integumentary: R 2nd toe ulceration, dressing c/d/i Neuro: Normal speech, normal affect Problem List R 2nd toe osteomyelitis DM2, insulin dependent Chronic diastolic CHF CKD4 continue IV cefepime / vanc pain meds as needed possible flow-limiting senosis on arterial doppler of RLE, no complete occlusion s/p debridement on 07/18, Surgery planning for amputation today f/u cultures; ID consulted continue sliding scale, titrate insulin for better control continue home anti-hypertensives Dispo: home, likely ~1 day, PO antibiotics Time Spent Managing Pts Care (In Minutes): 35
[2021-07-20] MEDS: FUROSEMIDE 40 MG TABLET PO SCH (09:00)
[2021-07-20] MEDS: AMLODIPINE 10 MG TAB PO SCH (09:00)
[2021-07-20] MEDS: SPIRONOLACTONE 25 MG TABLET PO SCH (09:00)
[2021-07-20] MEDS: DOXAZOSIN 4 MG TAB PO SCH (09:00)
[2021-07-20] MEDS: TRAMADOL HCL 50 MG TAB PO SCH ×2 (09:00→20:41)
[2021-07-20] MEDS: HYDRALAZINE HCL 25 MG TABLET PO SCH ×3 (09:00→20:41)
[2021-07-20] MEDS: METOLAZONE 2.5 MG TABLET PO SCH (09:00)
[2021-07-20] MEDS: allopurinoL 100 MG TAB PO SCH (09:00)
[2021-07-20] MEDS: INSULIN GLARGINE 100 UNIT/ML SQ SCH (09:12)
[2021-07-20] MEDS: INSULIN -REGULAR HUMAN 50 UNIT/0.5 ML ML SQ SCH ×4 (09:12→20:42)
[2021-07-20] MEDS: COLLAGENASE 30 GM OINTMENT TOP SCH (10:32)
[2021-07-20] MEDS ORDERED: NA CHLORIDE 0.9% 1,000 ML ONE (11:10)
[2021-07-20] MEDS ORDERED: BUPIVACAINE 0.5% Inj,MDV 50 mL VIAL ONE (13:06)
[2021-07-20] MEDS ORDERED: MIDAZOLAM HCL 2 MG/2 ML INJ ONE (13:14)
[2021-07-20] MEDS ORDERED: LIDOCAINE 1% MPF 5 ML VIAL ONE (13:14)
[2021-07-20] MEDS ORDERED: propofoL 200 MG/20 ML VIAL IV ONE (13:14)
[2021-07-20] MEDS ORDERED: FENTANYL CITR 100 MCG/2 ML ONE (13:14)
--- NOTE | 2021-07-20 13:57 | P.BOP ---
Preoperative diagnosis: R 2nd toe gamgrene with destructive osteomyelitis Postoperative diagnosis: same Primary procedure: R second toe amputation Estimated blood loss: <10cc Specimen: toe Findings: as above Anesthesia: General Complications: None Drain(s): Other (1/" iodoform packing) Transferred to: Recovery Room Condition: Good
[2021-07-20] MEDS: MORPHINE 4 MG/ML SYR ONE ×2 (14:31→14:37)
[2021-07-20] MEDS: MEPERIDINE HCL 25 MG/ML SYR ONE ×2 (14:35→14:41)
[2021-07-20 14:49] VITALS: O2SAT 97
--- NOTE | 2021-07-20 15:46 | OP ---
Date of Procedure: 07/20/2021 Surgeon: Tevin Khan MD Preoperative Diagnosis: Right second toe gangrene with destructive osteomyelitis. Postoperative Diagnosis: Right second toe gangrene with destructive osteomyelitis. Procedure: Right second toe amputation. Anesthesia: General plus local. Finding: Gangrenous toe. Complications: None. Packing: One quarter of an inch iodoform. Indication: This is the case of a 61-year-old patient, goes with osteomyelitis, cellulitis, destruct felipe osteomyelitis of the second toe. He was taken several days ago to debride the second toe and thi rd toe. Third toe delineated and looked like it may recover, but the second toe is not going to jennifer adriana, so he decided to go for amputation of the second toe with benefits, alternatives, and risks incl uding, but not limited to infection, bleeding, damage to adjacent structures, anesthesia complication , nonhealing wound, PA, and even . He also understands this may not relieve any symptoms. He m ight need more than one surgical intervention, he will require wound care. He also understands he wi ll be expected to follow with his primary doctor, also [facility]. Glucose sh ould be under control, the area should be clean, proper diabetic shoe should be wear. He is fully aw are of that. The area of concern was marked by me and the patient in the holding room. Procedure In Detail: The patient was brought to the operating room, placed in supine position. Anes thesia was done without complication. Right foot was prepped and draped in the usual sterile fashion . At the second toe, we proceeded to do a wedge incision in the skin. The incision was carried down until we found the first metatarsophalangeal joint. We went through that area, removed the tendon, and obtained hemostasis. Barely any blood coming to that area. The area was irrigated. Tendons wer e pulled and allowed to retract. The metatarsal head was excoriated. After that, we obtained hemost asis with the help of chromic and then after that, I packed the area with iodoform quarter of an inch . The patient tolerated the procedure well. Sponge count and instrument counts correct. The patien t was sent to recovery in stable condition. HM/MODL Voice ID: [id number] Report ID: [id number]
[2021-07-20] MEDS: MORPHINE 2 MG/ML SYR IV PRN (16:57)
[2021-07-20] MEDS: ATORVASTATIN 80 MG TAB PO SCH (20:42)
[2021-07-20] MEDS ORDERED: VANCOMYCIN 1.75 GM in NA CHLORIDE 0.9% 500 ML IVPB SCH (21:00)
[2021-07-20] MEDS: CEFEPIME 1 GM in NA CHLORIDE 0.9% 100 ML IV SCH (23:22)
[2021-07-21] MEDS: MORPHINE 2 MG/ML SYR IV PRN ×3 (00:09→11:52)
[2021-07-21] MEDS: HEPARIN 5000 UNIT/ML 1 ML VIAL SQ SCH ×3 (00:10→16:49)
[2021-07-21] MEDS: carvediloL 25 MG TAB PO SCH ×2 (05:27→16:49)
[2021-07-21 05:46] LABS: Absolute Lymphocytes (CBC) 2.1 K/uL (0.7-4.9); Hematocrit 36.7 % (39.6-49.0); Lymphocytes % 17.4 % (15.3-44.8); MPV 9.3 fL (7.6-11.3)
[2021-07-21 05:56] LABS: Magnesium 1.6 mg/dL (1.8-2.4); Potassium 4.8 mmol/L (3.5-5.1)
[2021-07-21] MEDS ORDERED: MAGNESIUM SULFATE 1 gm IVPB 1 GM/100 ML BAG IV ONE (06:10)
--- NOTE | 2021-07-21 06:38 | P.PN ---
Date of Service: 07/21/21 Subjective: s/p amputation, pain tolerable with medication no new symptoms, tolerating diet ROS: 10 point ROS as noted above, otherwise negative Physical exam GEN: Alert, oriented, NAD HEENT: Normal conjunctiva, sclera anicteric CV: Regular rate and rhythm, no edema Pulm: Nonlabored respirations on room air Integumentary: R toe amputated, dressing c/d/i Neuro: Normal speech, normal affect Problem List R 2nd toe osteomyelitis, now s/p amputation on 07/20 DM2, insulin dependent Chronic diastolic CHF CKD4 continue IV cefepime / vanc pain meds as needed possible flow-limiting senosis on arterial doppler of RLE, no complete occlusion s/p debridement on 07/18, amputation on 07/20 f/u cultures - 04/26 blood +; ID consulted, repeat blood culture ordered continue sliding scale, titrate insulin for better control continue home anti-hypertensives Dispo: home, likely ~1 day, on PO antibiotics pending repeat blood culture Time Spent Managing Pts Care (In Minutes): 35
[2021-07-21] MEDS ORDERED: DOXAZOSIN 2 MG TAB ONE (07:35)
[2021-07-21] MEDS: HYDRALAZINE HCL 25 MG TABLET PO SCH ×3 (08:29→20:44)
[2021-07-21] MEDS: allopurinoL 100 MG TAB PO SCH (08:29)
[2021-07-21] MEDS: FUROSEMIDE 40 MG TABLET PO SCH (08:29)
[2021-07-21] MEDS: AMLODIPINE 10 MG TAB PO SCH (08:30)
[2021-07-21] MEDS: SPIRONOLACTONE 25 MG TABLET PO SCH (08:30)
[2021-07-21] MEDS: METOLAZONE 2.5 MG TABLET PO SCH (08:31)
[2021-07-21] MEDS: cloNIDine HCL 0.1 MG TAB PO SCH ×3 (08:31→20:43)
[2021-07-21] MEDS: INSULIN -REGULAR HUMAN 50 UNIT/0.5 ML ML SQ SCH ×4 (08:32→20:43)
[2021-07-21] MEDS: INSULIN GLARGINE 100 UNIT/ML SQ SCH (08:32)
[2021-07-21] MEDS: TRAMADOL HCL 50 MG TAB PO SCH ×2 (08:33→20:44)
[2021-07-21] MEDS: COLLAGENASE 30 GM OINTMENT TOP SCH (08:33)
[2021-07-21] MEDS: DOXAZOSIN 4 MG TAB PO SCH (08:34)
--- NOTE | 2021-07-21 12:54 | P.PN ---
Subjective Date of Service: 07/21/21 Chief Complaint: Right foot ulcer Patient seen and examined at bedside status post surgical amputation of right second toe. Surgery well with no complications. Review of Systems 10-point ROS is otherwise unremarkable Physical Examination - Vital Signs Temperature: 97.5 F Blood Pressure: 145/84 Pulse: 68 Respirations: 20 Pulse Ox (%): 99 - Studies Laboratory Last Values WBC 11.8 K/uL (4.3-10.9) H 07/15/21 15:45 RBC 3.90 M/uL (4.33-5.43) L 07/15/21 15:45 Hgb 11.9 g/dL (13.6-17.9) L 07/15/21 15:45 Hct 36.1 % (39.6-49.0) L 07/15/21 15:45 MCV 92.5 fL (80-100) 07/15/21 15:45 MCH 30.5 pg (27.0-35.0) 07/15/21 15:45 MCHC 32.9 g/dL (32.0-36.0) 07/15/21 15:45 RDW 16.4 % (12.1-15.2) H 07/15/21 15:45 Plt Count 267 K/uL (152-406) 07/15/21 15:45 MPV 9.8 fL (7.6-11.3) 07/15/21 15:45 Neutrophils % 75.9 % (41.7-73.7) H 07/15/21 15:45 Lymphocytes % 13.2 % (15.3-44.8) L 07/15/21 15:45 Monocytes % 7.6 % (3.3-12.3) 07/15/21 15:45 Eosinophils % 2.2 % (0-4.4) 07/15/21 15:45 Basophils % 1.1 % (0-1.3) 07/15/21 15:45 Absolute Neutrophils 8.9 K/uL (1.8-8.0) H 07/15/21 15:45 Absolute Lymphocytes 1.6 K/uL (0.7-4.9) 07/15/21 15:45 Absolute Monocytes 0.9 K/uL (0.1-1.3) 07/15/21 15:45 Absolute Eosinophils 0.3 K/uL (0-0.5) 07/15/21 15:45 Absolute Basophils 0.1 K/uL (0-0.5) 07/15/21 15:45 ESR Westergren 62 mm/HR (0-20) H 07/15/21 15:45 PT 10.5 SECONDS (9.5-12.5) 07/15/21 15:45 INR 0.96 07/15/21 15:45 APTT 44.2 SECONDS (24.3-36.9) H 07/15/21 15:45 Sodium 133 mmol/L (136-145) L 07/15/21 15:45 Potassium 3.6 mmol/L (3.5-5.1) 07/15/21 15:45 Chloride 98 mmol/L (98-107) 07/15/21 15:45 Carbon Dioxide 30 mmol/L (21-32) 07/15/21 15:45 BUN 86 mg/dL (7-18) H 07/15/21 15:45 Creatinine 3.58 mg/dL (0.55-1.3) H 07/15/21 15:45 Estimated GFR 17 mL/min (=/>90) L 07/15/21 15:45 Glucose 119 mg/dL (74-106) H 07/15/21 15:45 Lactic Acid 0.6 mmol/L (0.4-2.0) 07/15/21 15:45 Calcium 9.0 mg/dL (8.5-10.1) 07/15/21 15:45 C-Reactive Protein 44.50 mg/L (<3.00) H 07/15/21 15:45 SARS-CoV-2 Rap RNA(RT-PCR) Negative (NEGATIVE) 07/15/21 16:10 Microbiology Data (last 24 hrs): 07/15/21 16:00 Blood - Blood Blood Culture Gram Stain - Final 07/15/21 16:00 Blood - Blood Anaerobic Blood Culture - Final No growth in 5 days. 07/15/21 15:45 Blood - Blood Aerobic Blood Culture - Final No growth in 5 days. 07/15/21 15:45 Blood - Blood Anaerobic Blood Culture - Final No growth in 5 days. Assessment And Plan - Plan Physical Exam: General: Alert, In no apparent distress HEENT: Atraumatic, Normocephalic Neck: Supple Respiratory: Clear to auscultation bilaterally, Normal air movement Cardiovascular: No edema, Regular rate/rhythm, Normal S1 S2 Musculoskeletal: No clubbing, No swelling Integumentary: Other (Bilateral olecranon growths right greater than left) Conclusions/Impression: Antibiotics: ciprofloxacin: 07/21-current Vancomycin: Cefepime: Assessment/plan Right second and third diabetic foot ulcer with osteomyelitis of the second toe X-ray demonstrated osteomyelitis of the right second toe middle and proximal phalanx. Patient taken to the OR on 07/18 for debridement of wounds on second/third toe. Taken amputation of right second toe. -Superficial wound cultures growing staph lugdunensis. Wound culture/bone biopsy obtained during OR debridement are pending. -Antibiotics deescalated to ciprofloxacin. Peripheral vascular disease Arterial Doppler showed flow restricting disease at aorta and iliac vasculature. -May need vascular consult outpatient Anemia Continue to monitor H&H Diabetes Hemoglobin A1c pending. Strict glucose monitoring needed for proper infection control/wound healing CKD stage IV Continue monitor closely. -Avoid nephrotoxic agents Medical management per primary team Plan of care discussed with Dr. Dunaway Thank you for consultation
[2021-07-21] MEDS: HYDROCODONE/APAP 5/325 MG TAB PO PRN ×2 (15:09→21:32)
[2021-07-21] MEDS: ATORVASTATIN 80 MG TAB PO SCH (20:44)
[2021-07-21] MEDS: CIPROFLOXACIN HCL 500 MG TAB PO SCH (20:44)
[2021-07-22] MEDS: HEPARIN 5000 UNIT/ML 1 ML VIAL SQ SCH ×2 (01:15→08:33)
[2021-07-22] MEDS: HYDROCODONE/APAP 5/325 MG TAB PO PRN ×2 (02:45→12:17)
[2021-07-22 05:21] LABS: Hematocrit 37.2 % (39.6-49.0); MPV 9.8 fL (7.6-11.3); RBC Red Blood Cell Count 3.96 M/uL (4.33-5.43)
[2021-07-22] MEDS: carvediloL 25 MG TAB PO SCH (05:42)
[2021-07-22 05:46] LABS: Magnesium 1.8 mg/dL (1.8-2.4); Potassium 4.6 mmol/L (3.5-5.1)
[2021-07-22] MEDS ORDERED: MAGNESIUM SULFATE 1 gm IVPB 1 GM/100 ML BAG IV ONE (05:52)
--- NOTE | 2021-07-22 06:56 | P.PN ---
Date of Service: 07/22/21 Subjective: ROS: 10 point ROS as noted above, otherwise negative Physical exam GEN: Alert, oriented, NAD HEENT: Normal conjunctiva, sclera anicteric CV: Regular rate and rhythm, no edema Pulm: Nonlabored respirations on room air Integumentary: R toe amputated, dressing c/d/i Neuro: Normal speech, normal affect Problem List R 2nd toe osteomyelitis, now s/p amputation on 07/20 DM2, insulin dependent Chronic diastolic CHF CKD4 continue IV cefepime / vanc pain meds as needed possible flow-limiting senosis on arterial doppler of RLE, no complete occlusion s/p debridement on 07/18, amputation on 07/20 f/u cultures - 04/26 blood +; ID consulted, repeat blood culture ordered continue sliding scale, titrate insulin for better control continue home anti-hypertensives Dispo: home, likely ~1 day, on PO antibiotics pending repeat blood culture Time Spent Managing Pts Care (In Minutes): 35
[2021-07-22] MEDS: SPIRONOLACTONE 25 MG TABLET PO SCH (08:33)
[2021-07-22] MEDS: FUROSEMIDE 40 MG TABLET PO SCH (08:33)
[2021-07-22] MEDS: allopurinoL 100 MG TAB PO SCH (08:33)
[2021-07-22] MEDS: TRAMADOL HCL 50 MG TAB PO SCH (08:34)
[2021-07-22] MEDS: AMLODIPINE 10 MG TAB PO SCH (08:34)
[2021-07-22] MEDS: CIPROFLOXACIN HCL 500 MG TAB PO SCH (08:34)
[2021-07-22] MEDS: COLLAGENASE 30 GM OINTMENT TOP SCH (08:35)
[2021-07-22] MEDS: INSULIN -REGULAR HUMAN 50 UNIT/0.5 ML ML SQ SCH ×2 (08:35→12:13)
[2021-07-22] MEDS: INSULIN GLARGINE 100 UNIT/ML SQ SCH (08:35)
[2021-07-22] MEDS: DOXAZOSIN 4 MG TAB PO SCH (08:36)
[2021-07-22] MEDS: cloNIDine HCL 0.1 MG TAB PO SCH ×3 (09:00→14:00)
[2021-07-22] MEDS: HYDRALAZINE HCL 25 MG TABLET PO SCH ×3 (09:00→14:00)
[2021-07-22] MEDS: METOLAZONE 2.5 MG TABLET PO SCH (12:18)
[2021-07-22 12:19] VITALS: BP 143/75
[2021-07-22 13:40] VITALS: TEMP 96
--- NOTE | 2021-07-22 13:53 | P.PN ---
Subjective Date of Service: 07/22/21 Chief Complaint: Right foot ulcer Patient seen and examined at bedside, continues to have hyperglycemia. Review of Systems 10-point ROS is otherwise unremarkable Physical Examination - Vital Signs Temperature: 96.0 F Blood Pressure: 143/75 Pulse: 65 Respirations: 16 Pulse Ox (%): 98 - Studies Active Medications Acetaminophen (Acetaminophen 500 Mg Tab) 500 mg PO Q4HP PRN PRN Reason: TEMP > 100' F Hydrocodone Bitart/Acetaminophen (Hydrocodone/Apap 5/325 Mg Tab) 1 tab PO Q6H PRN PRN Reason: Pain scale 5-7 (Moderate) Last Admin: 07/22/21 12:17 Dose: 1 tab Documented by: Allopurinol (Allopurinol 100 Mg Tab) 200 mg PO DAILY [facility] Last Admin: 07/22/21 08:33 Dose: 200 mg Documented by: Amlodipine Besylate (Amlodipine 10 Mg Tab) 10 mg PO DAILY [facility] Last Admin: 07/22/21 08:34 Dose: 10 mg Documented by: Atorvastatin Calcium (Atorvastatin 80 Mg Tab) 80 mg PO BEDTIME [facility] Last Admin: 07/21/21 20:44 Dose: 80 mg Documented by: Carvedilol (Carvedilol 25 Mg Tab) 25 mg PO BID 6AM 6PM [facility] Last Admin: 07/22/21 05:42 Dose: 25 mg Documented by: Ciprofloxacin (Ciprofloxacin Hcl 500 Mg Tab) 500 mg PO BID [facility] Stop: 07/28/21 09:01 Last Admin: 07/22/21 08:34 Dose: 500 mg Documented by: Clonidine HCl (Clonidine Hcl 0.1 Mg Tab) 0.2 mg PO TID [facility] Last Admin: 07/22/21 12:13 Dose: 0.2 mg Documented by: Collagenase (Collagenase 30 Gm Ointment) 1 appl TOP DAILY [facility] Last Admin: 07/22/21 08:35 Dose: 1 appl Documented by: Doxazosin Mesylate (Doxazosin 4 Mg Tab) 8 mg PO DAILY [facility] Last Admin: 07/22/21 08:36 Dose: 8 mg Documented by: Furosemide (Furosemide 40 Mg Tablet) 80 mg PO DAILY [facility] Last Admin: 07/22/21 08:33 Dose: 80 mg Documented by: Heparin Sodium (Porcine) (Heparin 5000 Unit/Ml 1 Ml Vial) 5,000 unit SQ Q8HR [facility] Last Admin: 07/22/21 08:33 Dose: 5,000 unit Documented by: Hydralazine HCl (Hydralazine Hcl 25 Mg Tablet) 100 mg PO TID [facility] Last Admin: 07/22/21 12:13 Dose: 100 mg Documented by: Insulin Glargine (Insulin Glargine 100 Unit/Ml) 15 unit SQ DAILY [facility] Last Admin: 07/22/21 08:35 Dose: 15 unit Documented by: Insulin Human Regular (Insulin -Regular Human 50 Unit/0.5 Ml Ml) 0 unit SQ [facility]; Protocol Last Admin: 07/22/21 12:13 Dose: 7 unit Documented by: Metolazone (Metolazone 2.5 Mg Tablet) 2.5 mg PO DAILY [facility] Last Admin: 07/22/21 12:18 Dose: 2.5 mg Documented by: Morphine Sulfate (Morphine 2 Mg/Ml Syr) 2 mg IV Q6H PRN PRN Reason: Pain scale 5-7 (Moderate) Last Admin: 07/21/21 11:52 Dose: 2 mg Documented by: Ondansetron HCl (Ondansetron 4 Mg/2 Ml Vial) 4 mg IV Q6HP PRN PRN Reason: NAUSEA / VOMITING Last Admin: 07/20/21 20:51 Dose: 4 mg Documented by: Sodium Chloride (Flush Normal Saline 10 Ml) 10 ml IV BID [facility] Last Admin: 07/22/21 08:35 Dose: 10 ml Documented by: Spironolactone (Spironolactone 25 Mg Tablet) 25 mg PO DAILY [facility] Last Admin: 07/22/21 08:33 Dose: 25 mg Documented by: Tramadol HCl (Tramadol Hcl 50 Mg Tab) 100 mg PO BID [facility] Last Admin: 07/22/21 08:34 Dose: 100 mg Documented by: Microbiology Data (last 24 hrs): 07/15/21 16:00 Blood - Blood Aerobic Blood Culture - Final 07/15/21 16:00 Blood - Blood Blood Culture Gram Stain - Final 07/15/21 16:00 Blood - Blood Anaerobic Blood Culture - Final No growth in 5 days. Assessment And Plan - Plan Physical Exam: General: Alert, In no apparent distress HEENT: Atraumatic, Normocephalic Neck: Supple Respiratory: Clear to auscultation bilaterally, Normal air movement Cardiovascular: No edema, Regular rate/rhythm, Normal S1 S2 Musculoskeletal: No clubbing, No swelling Integumentary: Other (Bilateral olecranon growths right greater than left) Conclusions/Impression: Antibiotics: ciprofloxacin: 07/21-current Vancomycin: Cefepime: Assessment/plan Right second and third diabetic foot ulcer with osteomyelitis of the second toe X-ray demonstrated osteomyelitis of the right second toe middle and proximal phalanx. Patient taken to the OR on 07/18 for debridement of wounds on second/third toe. Taken amputation of right second toe. -Superficial wound cultures growing staph lugdunensis. -Antibiotics deescalated to ciprofloxacin. Peripheral vascular disease Arterial Doppler showed flow restricting disease at aorta and iliac vasculature. -May need vascular consult outpatient Anemia Continue to monitor H&H Diabetes Hemoglobin A1c pending. Strict glucose monitoring needed for proper infection control/wound healing CKD stage IV Continue monitor closely. -Avoid nephrotoxic agents Medical management per primary team Plan of care discussed with Dr. Dunaway Thank you for consultation
--- NOTE | 2021-07-22 17:24 | P.DS ---
Admission Date: 07/15/21 Discharge Date: 07/22/21 Disposition: ROUTINE DISCHARGE Discharge Condition: GOOD Reason for Admission: Right foot ulcer Consultations: General surgeryDr. Khan Infectious disease - Dr. Dunaway Procedures: Problem List R 2nd toe osteomyelitis, now s/p amputation on 07/20 DM2, insulin dependent Chronic diastolic CHF CKD4 Gout Hypertension Brief History of Present Illness: 61yo M, PMH: IDDM2, gout, CHF, CKD4, h/o nephrectomy 2/2 renal cancer, HTN Presented to the ED with progressively worsening of ulcer on right second toe over the last week. Associated with swelling, redness and pain. Wound became malodorous. In the ED, noted to have mild leukocytosis, concern for abscess or possibly osteomyelitis. He was admitted for further evaluation. Hospital Course: Patient was found to have osteomyelitis of his toe. General surgery was consulted, took patient for debridement and ultimately amputation. Patient otherwise did well. Infectious disease was consulted. IV antibiotics were transitioned to PO ciprofloxacin after amputation. ID recommended 10 days of Ciprofloxacin. Patient to follow up with PCP within 1 week. Follow up with General surgery in wound clinic next week - Sunday or Sunday. Arterial Doppler done in the ED noted possible flow-limiting stenosis of right lower extremity, no complete occlusion May benefit from vascular evaluation as outpatient. Vital Signs/Physical Exam: Temp Pulse Resp BP Pulse Ox 96.0 F L 65 16 143/75 H 98 07/22/21 13:53 07/22/21 13:53 07/22/21 13:53 07/22/21 13:53 07/22/21 13:53 Physical exam GEN: Alert, oriented, NAD HEENT: Normal conjunctiva, sclera anicteric CV: Regular rate and rhythm, no edema Pulm: Non-labored respirations on room air Integumentary: R toe amputated, dressing c/d/i Neuro: Normal speech, normal affect Laboratory Data at Discharge: WBC 11.0 K/uL (4.3-10.9) H 07/22/21 04:29 Hgb 12.3 g/dL (13.6-17.9) L 07/22/21 04:29 Hct 37.2 % (39.6-49.0) L 07/22/21 04:29 Plt Count 283 K/uL (152-406) 07/22/21 04:29 PT 10.5 SECONDS (9.5-12.5) 07/15/21 15:45 INR 0.96 07/15/21 15:45 APTT 44.2 SECONDS (24.3-36.9) H 07/15/21 15:45 Sodium 136 mmol/L (136-145) 07/22/21 04:29 Potassium 4.6 mmol/L (3.5-5.1) 07/22/21 04:29 BUN 62 mg/dL (7-18) H 07/22/21 04:29 Creatinine 2.97 mg/dL (0.55-1.3) H 07/22/21 04:29 Glucose 209 mg/dL (74-106) H 07/22/21 04:29 Phosphorus 3.1 mg/dL (2.5-4.9) 07/20/21 03:18 Magnesium 1.8 mg/dL (1.8-2.4) 07/22/21 04:29 Home Medications: Allopurinol 200 mg PO BID 07/16/21 Amlodipine [Norvasc*] 10 mg PO DAILY 07/16/21 Atorvastatin Calcium [Lipitor] 80 mg PO BEDTIME 07/16/21 Carvedilol [Coreg] 25 mg PO BID 07/16/21 Clonidine HCl [Catapres*] 0.2 mg PO TID 07/16/21 Doxazosin [Cardura*] 8 mg PO DAILY 07/16/21 Furosemide [Lasix] 80 mg PO BID 07/16/21 Hydralazine HCl 100 mg PO TID 07/16/21 Insulin NPH Human [Novolin N (Humulin N)*] 20 units SQ BID 07/16/21 Spironolactone [Aldactone] 25 mg PO DAILY 07/16/21 metOLazone [Zaroxolyn*] 2.5 mg PO 07/16/21 traMADol HCL [Ultram] 100 mg PO BID 07/16/21 Ciprofloxacin HCl [Cipro 500 MG Tablet] 500 mg PO BID 10 Days #20 tab 07/22/21 Hydrocodone 5/APAP 325 [[place] 5/325*] 1 tab PO Q8H PRN 5 Days #15 tab 07/22/21 New Medications: Ciprofloxacin HCl [Cipro 500 MG Tablet] 500 mg PO BID 10 Days #20 tab Hydrocodone 5/APAP 325 [[place] 5/325*] 1 tab PO Q8H PRN 5 Days #15 tab PRN Reason: Pain Scale 5-7 (Moderate) Physician Discharge Instructions: Patient was found to have osteomyelitis of his toe. General surgery was consulted, took patient for debridement and ultimately amputation. Patient otherwise did well. Infectious disease was consulted. IV antibiotics were transitioned to PO ciprofloxacin after amputation. ID recommended 10 days of Ciprofloxacin. Patient to follow up with PCP within 1 week. Follow up with General surgery in wound clinic next week - Sunday or Sunday. Followup: OOT,OOT [Primary Care Provider] - Time spent managing pt's care (in minutes): 45
== END 2021-07-22 16:10 | disposition home or self-care (01) | DRG 617 ==
LOC: ER 15:17 → ERHOLD 17:21 → 2ND 19:38
PROVIDERS: ADMIT Internal Medicine; ATTEND Hospitalist
PROC: 0JBQ3ZZ Excision of Right Foot Subcutaneous Tissue and Fascia, Percutaneous Approach (ICD-10-PCS; 2021-07-15)
PROC: 0Y6R0Z0 Detachment at Right 2nd Toe, Complete, Open Approach (ICD-10-PCS; principal; 2021-07-20 13:45)
DX: E11.69 Type 2 diabetes mellitus with other specified complication (principal); E11.52 Type 2 diabetes mellitus with diabetic peripheral angiopathy with gangrene; L03.115 Cellulitis of right lower limb; M86.8X7 Other osteomyelitis, ankle and foot; I13.0 Hypertensive heart and chronic kidney disease with heart failure and stage 1 through stage 4 chronic kidney disease, or unspecified chronic kidney disease; I50.32 Chronic diastolic (congestive) heart failure; N18.4 Chronic kidney disease, stage 4 (severe); E11.22 Type 2 diabetes mellitus with diabetic chronic kidney disease; F17.210 Nicotine dependence, cigarettes, uncomplicated; E11.621 Type 2 diabetes mellitus with foot ulcer; M10.9 Gout, unspecified; L97.519 Non-pressure chronic ulcer of other part of right foot with unspecified severity; D72.829 Elevated white blood cell count, unspecified; Z79.4 Long term (current) use of insulin; Z90.49 Acquired absence of other specified parts of digestive tract; Z85.528 Personal history of other malignant neoplasm of kidney; Z79.899 Other long term (current) drug therapy; Z20.822 Contact with and (suspected) exposure to COVID-19
CPT/HCPCS: 36415; 80048; 80069; 80202; 81003; 82947; 83605; 83735; 84100; 85025; 85027; 85610; 85652; 85730; 86140; 87040; 87070; 87075; 87077; 87186; 87205; 88304; 88305; 88311; 93005; 93926; 96365; 96375; 99285; J0692; J1100; J1170; J1644; J2175; J2250; J2270; J2405; J2543; J2704; J3010; J3370; J3475; J3590; J7030; J7040; J7050; U0003